=== PATIENT | female | born 1955 | race Caucasian/White ===

== ENCOUNTER 2021-05-27 01:09 | Emergency (ER) | payer OTHER ==
[~2021-05-27] VITALS: Ht 172.7 cm; Wt 95.5 kg
[2021-05-27 01:59] LABS: BASOPHILS % (AUTO) 0.4 % (0.0-2.0); EOSINOPHILS % (AUTO) 1.3 % (1.0-6.0); HEMATOCRIT 33.2 % (36-46); HEMOGLOBIN 10.5 g/dL (12.0-16.0); LYMPHOCYTES # (AUTO) 2.4 K/uL (1.0-4.8); LYMPHOCYTES % (AUTO) 22.1 % (22.0-44.0); MEAN CORPUSCULAR HEMOGLOBIN 25.7 pg (26.0-34.0); MEAN CORPUSCULAR HGB CONC 31.7 G/dL (31.0-37.0); MEAN CORPUSCULAR VOLUME 81 fL (80-100); MONOCYTES # (AUTO) 0.8 K/uL (0.1-1.0); MONOCYTES % (AUTO) 7.7 % (2.0-9.0); NEUTROPHILS # (AUTO) 7.5 K/uL (1.8-7.7); NEUTROPHILS % (AUTO) 68.5 % (40.0-70.0); PLATELET COUNT (AUTO) 420 K/uL (150-450); RED BLOOD CELL COUNT(AUTO) 4.09 MIL/uL (4.00-5.20); RED CELL DISTRIBUTION WIDTH 19.4 % (11.5-14.5)
[2021-05-27 02:10] LABS: CALCIUM, TOTAL 9.1 mg/dL (8.8-10.5); CREATININE 1.12 mg/dL (0.60-1.30)
[2021-05-27 02:15] LABS: INR 1.2 (0.9-1.1); PROTHROMBIN TIME 12.4 SEC (9.4-11.6)
[2021-05-27 02:19] LABS: ALBUMIN 3.2 g/dL (3.4-5.0); BILIRUBIN,TOTAL 1.2 mg/dL (0.1-1.0)
[2021-05-27] MEDS ORDERED: SODIUM CHLORIDE 0.9% 100 ML ONE (03:03)
[2021-05-27] MEDS ORDERED: IOHEXOL 350 MG/ML 150 ML VIAL ONE (03:04)
[2021-05-27 05:45] LABS: APPEARANCE,URINE CLEAR (CLEAR); BILIRUBIN,URINE NEGATIVE (NEGATIVE); GLUCOSE, URINE (UA) NEGATIVE (NEGATIVE); KETONES,URINE NEGATIVE (NEGATIVE); LEUKOCYTE ESTERASE ,URINE NEGATIVE (NEGATIVE); NITRATE,URINE NEGATIVE (NEGATIVE); OCCULT BLOOD,URINE NEGATIVE (NEGATIVE); PH,URINE 7.5 (5.0-8.0); PROTEIN,URINE SEE CONFIRM (NEGATIVE)
[2021-05-27 05:53] LABS: BACTERIA,URINE Rare /HPF (None Seen); RBC,URINE 0-2 /HPF (0-2); SULFOSALICYLIC ACID,URINE 2+ (Negative); WBC,URINE 0-2 /HPF (0-5)
[2021-05-27] MEDS ORDERED: FUROSEMIDE 40 MG/4 ML VIAL IVP ONE (12:45)
[2021-05-27 15:20] LABS: COVID AG,FIA SOURCE NASOPHARYNGEAL
[2021-05-27] MEDS ORDERED: POTA-92 PO (18:28)
[2021-05-27] MEDS ORDERED: WARF2.5T38 PO (18:28)
[2021-05-27] MEDS ORDERED: FURO-152 PO (18:28)
[2021-05-27] MEDS ORDERED: ASPI-1444 PO (18:28)
[2021-05-27] MEDS ORDERED: ATOR20TA86 PO (18:28)
[2021-05-27] MEDS ORDERED: ALBUTEROL SULFATE 2.5 MG/0.5 ML NEB SOLUTION NEB PRN (19:15)
[2021-05-27] MEDS ORDERED: MAGNESIUM HYDROXIDE SUSPENSION 30 ML UDCUP PO PRN (19:15)
[2021-05-27] MEDS ORDERED: ACETAMINOPHEN 325 MG TABLET PO PRN (19:15)
[2021-05-27] MEDS ORDERED: IPRATROPIUM BROMIDE 0.5 MG/2.5 ML NEB SOLUTION NEB PRN (19:15)
[2021-05-27] MEDS ORDERED: ZOLPIDEM TARTRATE 5 MG TABLET PO PRN (19:15)
[2021-05-27] MEDS ORDERED: BISACODYL 10 MG RECTAL RECTAL SUPPOSITORY PR PRN (19:15)
[2021-05-27] MEDS ORDERED: ONDANSETRON HCL 4 MG/2 ML VIAL IVP PRN (19:15)
[2021-05-27] MEDS: DOCUSATE SODIUM 100 MG CAPSULE PO SCH (21:16)
[2021-05-27] MEDS: SENNA 187 MG TABLET PO SCH (21:16)
[2021-05-27] MEDS ORDERED: ATORVASTATIN CALCIUM 20 MG TABLET PO SCH (22:15)
[2021-05-27] MEDS: FUROSEMIDE 20 MG TABLET PO SCH (22:35)
[2021-05-27] MEDS: HEPARIN SODIUM,PORCINE 5,000 UNITS/ML VIAL SQ SCH (23:41)
[2021-05-28 06:09] LABS: BASOPHILS % (AUTO) 0.5 % (0.0-2.0); EOSINOPHILS % (AUTO) 2.1 % (1.0-6.0); HEMATOCRIT 31.9 % (36-46); LYMPHOCYTES # (AUTO) 1.9 K/uL (1.0-4.8); LYMPHOCYTES % (AUTO) 24.5 % (22.0-44.0); MEAN CORPUSCULAR HEMOGLOBIN 25.5 pg (26.0-34.0); MEAN CORPUSCULAR HGB CONC 31.4 G/dL (31.0-37.0); MEAN CORPUSCULAR VOLUME 81 fL (80-100); MONOCYTES # (AUTO) 0.8 K/uL (0.1-1.0); MONOCYTES % (AUTO) 9.6 % (2.0-9.0); NEUTROPHILS % (AUTO) 63.3 % (40.0-70.0); PLATELET COUNT (AUTO) 385 K/uL (150-450); RED BLOOD CELL COUNT(AUTO) 3.93 MIL/uL (4.00-5.20); RED CELL DISTRIBUTION WIDTH 19.7 % (11.5-14.5)
[2021-05-28 06:28] LABS: ALBUMIN 2.9 g/dL (3.4-5.0); BILIRUBIN,TOTAL 1.4 mg/dL (0.1-1.0); CALCIUM, TOTAL 8.8 mg/dL (8.8-10.5); CREATININE 1.22 mg/dL (0.60-1.30); POTASSIUM 3.8 mmol/L (3.5-5.1); TOTAL PROTEIN, SERUM 7.2 g/dL (6.4-8.2)
[2021-05-28] MEDS: HEPARIN SODIUM,PORCINE 5,000 UNITS/ML VIAL SQ SCH (08:59)
[2021-05-28] MEDS: FUROSEMIDE 20 MG TABLET PO SCH (09:00)
[2021-05-28] MEDS: DOCUSATE SODIUM 100 MG CAPSULE PO SCH (09:00)
[2021-05-28] MEDS ORDERED: PANTOPRAZOLE SODIUM 40 MG/VIAL IVP SCH (09:00)
[2021-05-28] MEDS ORDERED: ASPIRIN 81 MG DR TABLET PO SCH (09:00)
[2021-05-28] MEDS: SENNA 187 MG TABLET PO SCH (09:49)
[2021-05-28] MEDS ORDERED: CARVEDILOL 3.125 MG TABLET PO SCH (11:45)
[2021-05-28 12:00] VITALS: BP 130/96
[2021-05-28] MEDS ORDERED: WARFARIN SODIUM 2.5 MG TABLET PO SCH (17:00)
[2021-05-29] MEDS ORDERED: LOSARTAN POTASSIUM 25 MG TABLET PO SCH (09:00)
== END 2021-05-28 12:17 | disposition home or self-care (01) ==
LOC: EMS 01:12
DX: R10.33 Periumbilical pain (principal); I50.9 Heart failure, unspecified; I48.91 Unspecified atrial fibrillation; Z20.822 Contact with and (suspected) exposure to COVID-19
CPT/HCPCS: 36415; 71045; 74177; 76700; 78226; 80053; 81001; 83690; 83880; 84484; 85025; 85610; 85730; 87426; 93005; 93306; 96372; 96374; 96375; 99285; A9537; C9113; J1644 ×2; J1940; J7050; Q9967; 81002